=== PATIENT | male | born 1975 ===

== ENCOUNTER → 2024-08-04 12:59 | Outpatient (REF) | payer OTHER, SELFPAY | LOC: HWRAD 12:59 | PROVIDERS: ATTENDING PHYSICIAN Internal Medicine; FAMILY PHYSICIAN Internal Medicine | DX: J18.9 Pneumonia, unspecified organism (principal) | CPT/HCPCS: 71046 ==

== ENCOUNTER 2025-05-11 19:49 | Emergency (ER) | payer OTHER, SELFPAY ==
[2025-05-11 19:53] VITALS: BP 137/92
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
[2025-05-11] MEDS: TORADOL 30 MG IM (21:29)
== END 2025-05-11 21:33 | disposition home or self-care (01) ==
LOC: EMR 19:49
PROVIDERS: EMERGENCY PHYSICIAN Emergency Medicine; FAMILY PHYSICIAN Internal Medicine
DX: S06.0XAA Concussion with loss of consciousness status unknown, initial encounter (principal); S13.4XXA Sprain of ligaments of cervical spine, initial encounter; M25.561 Pain in right knee; V43.52XA Car driver injured in collision with other type car in traffic accident, initial encounter; E78.5 Hyperlipidemia, unspecified
CPT/HCPCS: 96372; 99284